=== PATIENT | male | born 1950 | race Asian ===

== ENCOUNTER 2019-04-21 22:03 | Emergency (ER) | payer OTHER ==
[2019-04-21 23:14] LABS: PLATELET COUNT 284 K/uL (142-355)
[2019-04-21 23:20] LABS: POTASSIUM 4.6 mmol/L (3.6-5.2)
[2019-04-22] MEDS ORDERED: LIPITOR40 MG PO (02:09)
[2019-04-22] MEDS ORDERED: ELIQUIS5 MG PO (02:12)
[2019-04-22] MEDS ORDERED: KP FOLIC ACID1 MG PO (02:12)
[2019-04-22] MEDS ORDERED: DORZOLAMIDE2 % OPTH (02:12)
[2019-04-22] MEDS ORDERED: MAG OXIDE400 MG PO (02:13)
[2019-04-22] MEDS ORDERED: OMEPRAZOLE20 M2 PO (02:14)
[2019-04-22] MEDS ORDERED: CARV25TA PO (02:16)
[2019-04-22] MEDS ORDERED: LEXAPRO10 MG PO (02:26)
[2019-04-22] MEDS ORDERED: NOVOLOG FL100 UNIT/M SC ×3 (02:28→02:30)
[2019-04-22] MEDS ORDERED: TAMS0.4C PO (02:29)
[2019-04-22] MEDS ORDERED: POTASSIUM CHLO20 ME1 PO (02:30)
[2019-04-22] MEDS ORDERED: COLCRYS 0.6MG0.6 MG PO (02:32)
[2019-04-22] MEDS ORDERED: NIZORAL2 % EX (02:32)
[2019-04-22] MEDS ORDERED: ZYRTEC ALLGY10 MG PO (02:33)
[2019-04-22] MEDS ORDERED: XALATAN0.005 % OPTH (02:34)
[2019-04-22] MEDS ORDERED: FSBS (03:43)
== END 2019-04-22 | disposition still patient (30) ==
LOC: ED 22:03
PROVIDERS: Emergency Medicine
DX: R46.89 Other symptoms and signs involving appearance and behavior (principal); D64.89 Other specified anemias; Z04.6 Encounter for general psychiatric examination, requested by authority
CPT/HCPCS: 36415; 80053; 85027; 93005; 99285